=== PATIENT | male | born 1950 | race African-American/Black ===

== ENCOUNTER 2018-10-27 12:49 | Inpatient (IN) | payer MEDICARE, MEDICAID ==
[~2018-10-27] VITALS: Ht 172.7 cm; Wt 94.8 kg
[~2018-10-27 12:49] MED LIST: AMLODIPINE PO; CLOP75TA16 PO; LEVE1000 PO; LIPITOR; LORA10TA2 PO; SIMVASTATIN PO; ZOLPIDEM PO
[2018-10-27] MEDS ORDERED: SODIUM CHLORIDE 0.9% 1,000 ML IV ONE (13:20)
[2018-10-27 13:50] LABS: BASOPHILS % 1.3 % (0.0-2.0); EOSINOPHILS % 2.6 % (0.0-5.0); HEMATOCRIT. 42.9 % (42.0-52.0); LYMPHOCYTES % 24.5 % (20.0-50.0); MEAN CORPUSCULAR HEMOGLOBIN 28.9 pg (28.0-32.0); MEAN CORPUSCULAR VOLUME 88.6 fL (80.0-94.0); MEAN PLATELET VOLUME 8.4 fl (7.4-10.4); MONOCYTES % 7.8 % (2.0-8.0); NEUTROPHILS % 63.8 % (40.0-76.0); PLATELET 262 x1000/uL (130-400); RED BLOOD CELL COUNT 4.84 mill/uL (4.7-6.1); RED CELL DISTRIBUTION WIDTH 13.7 % (11.6-14.6)
[2018-10-27 13:55] LABS: CHLORIDE 107 mEq/L (98-107)
[2018-10-27 14:04] LABS: INR 1.1; PROTHROMBIN TIME 11.4 sec (9.6-11.0)
[2018-10-27 15:19] LABS: CLARITY URINE CLEAR (CLEAR); COLOR URINE YELLOW (YELLOW); KETONES URINE NEGATIVE (NEGATIVE); LEUKOCYTE ESTERASE URINE NEGATIVE (NEGATIVE); NITRITE URINE NEGATIVE (NEGATIVE); OCCULT BLOOD URINE 1+ (NEGATIVE); PH URINE 5.5 (4.5-8.0); PROTEIN URINE NEGATIVE (NEGATIVE); SPECIFIC GRAVITY URINE 1.025 (1.005-1.030)
[2018-10-27] MEDS ORDERED: CLONIDINE 0.1MG TABLET PO PRN (16:00)
[2018-10-27] MEDS ORDERED: ONDANSETRON HCL 4MG/2ML INJ IV PRN (16:00)
[2018-10-27] MEDS ORDERED: ACETAMINOPHEN 325MG TABLET PO PRN (16:00)
[2018-10-27] MEDS ORDERED: MORPHINE SULFATE 4 MG/ML CPJ (NOT FOR IM USE) IV PRN (18:00)
[2018-10-27] MEDS ORDERED: IOHEXOL-300 100 ML BOTTLE ONE (19:09)
[2018-10-27] MEDS ORDERED: PANTOPRAZOLE SODIUM 40 MG/VIAL IV NR (20:00)
[2018-10-27] MEDS: DEXT 5%/0.45% NACL 1000ML 1,000 ML IV SCH (20:17)
[2018-10-27 22:00] VITALS: BP 137/84
[2018-10-28] VITALS: BP 132/84
[2018-10-28 04:00] VITALS: BP 119/74
[2018-10-28 06:25] LABS: BASOPHILS % 0.8 % (0.0-2.0); EOSINOPHILS % 2.8 % (0.0-5.0); HEMATOCRIT. 36.2 % (42.0-52.0); LYMPHOCYTES % 26.2 % (20.0-50.0); MEAN CORPUSCULAR HEMOGLOBIN 29.2 pg (28.0-32.0); MEAN CORPUSCULAR VOLUME 87.8 fL (80.0-94.0); MEAN PLATELET VOLUME 8.5 fl (7.4-10.4); MONOCYTES % 8.8 % (2.0-8.0); NEUTROPHILS % 61.4 % (40.0-76.0); PLATELET 233 x1000/uL (130-400); RED BLOOD CELL COUNT 4.13 mill/uL (4.7-6.1); RED CELL DISTRIBUTION WIDTH 13.6 % (11.6-14.6)
[2018-10-28 07:13] LABS: CHLORIDE 105 mEq/L (98-107)
[2018-10-28 07:48] VITALS: BP 130/74
[2018-10-28] MEDS: DEXT 5%/0.45% NACL 1000ML 1,000 ML IV SCH ×4 (08:40→21:14)
[2018-10-28] MEDS: PANTOPRAZOLE SODIUM 40 MG/VIAL IV SCH ×2 (08:50→17:42)
[2018-10-28 10:27] LABS: *AMPHETAMINES SCREEN URINE NEGATIVE (NEGATIVE); *BARBITURATES SCREEN URINE NEGATIVE (NEGATIVE); *BENZODIAZEPINES SCREEN URINE NEGATIVE (NEGATIVE); *COCAINE SCREEN URINE NEGATIVE (NEGATIVE); CANNABINOID URINE SCREEN NEGATIVE (NEGATIVE); METHADONE URINE SCREEN NEGATIVE (NEGATIVE); OPIATES URINE SCREEN NEGATIVE (NEGATIVE); PHENCYCLIDINE URINE SCREEN NEGATIVE (NEGATIVE)
[2018-10-28 11:54] VITALS: BP 144/89
[2018-10-28] MEDS: BLOOD SUGAR DIAGNOSTIC STRIP TEST SCH ×2 (12:42→17:42)
[2018-10-28] MEDS: INSULIN LISPRO 100 UNITS/ML SUBCUT SCH ×3 (12:42→20:59)
[2018-10-28] MEDS ORDERED: DEXTROSE 50% WATER 50ML SYRINGE IV PRN (12:45)
[2018-10-28 14:33] LABS: TOTAL IRON BINDING CAPACITY 232 ug/dL (250-450)
[2018-10-28 14:47] LABS: FOLIC ACID (FOLATE) SERUM 17.2 ng/mL (>5.38)
[2018-10-28 15:59] VITALS: BP 148/89
[2018-10-28] MEDS: METFORMIN HCL 500MG TABLET PO SCH (17:42)
[2018-10-28 20:00] VITALS: BP 138/76
[2018-10-28] MEDS: LEVETIRACETAM 500MG TABLET PO SCH (20:59)
[2018-10-29] VITALS: BP 139/86
[2018-10-29 04:00] VITALS: BP 124/70
[2018-10-29 06:19] LABS: HEMATOCRIT 36.2 % (42.0-52.0); HEMOGLOBIN 12.2 g/dL (14.0-18.0); MEAN CORPUSCULAR HEMOGLOBIN 29.3 pg (28.0-32.0); MEAN CORPUSCULAR VOLUME 86.9 fL (80.0-94.0); PLATELET 225 x1000/uL (130-400); RED BLOOD CELL COUNT 4.17 mill/uL (4.7-6.1); RED CELL DISTRIBUTION WIDTH 13.1 % (11.6-14.6)
[2018-10-29] MEDS: BLOOD SUGAR DIAGNOSTIC STRIP TEST SCH ×2 (07:00→13:14)
[2018-10-29] MEDS: INSULIN LISPRO 100 UNITS/ML SUBCUT SCH ×2 (07:50→12:50)
[2018-10-29 08:27] VITALS: BP 149/95
[2018-10-29] MEDS: PANTOPRAZOLE SODIUM 40 MG/VIAL IV SCH (08:50)
[2018-10-29] MEDS: METFORMIN HCL 500MG TABLET PO SCH (08:51)
[2018-10-29] MEDS: LEVETIRACETAM 500MG TABLET PO SCH (08:51)
[2018-10-29 11:57] VITALS: BP 155/94
[2018-10-29 16:00] VITALS: BP 122/88
== END 2018-10-29 15:00 | disposition home or self-care (01) | DRG 377 ==
LOC: ER 12:49 → 6WST 15:46 → EDBEDREQSVC 15:52 → EDBEDREQ 15:52 → ENRESERV 20:55
PROVIDERS: ADMIT Internal Medicine; ATTEND Internal Medicine
DX: K57.31 Diverticulosis of large intestine without perforation or abscess with bleeding (principal); K85.90 Acute pancreatitis without necrosis or infection, unspecified; I69.354 Hemiplegia and hemiparesis following cerebral infarction affecting left non-dominant side; D64.9 Anemia, unspecified; I10 Essential (primary) hypertension; G90.8 Other disorders of autonomic nervous system; E11.9 Type 2 diabetes mellitus without complications; G40.909 Epilepsy, unspecified, not intractable, without status epilepticus; E78.5 Hyperlipidemia, unspecified; K76.0 Fatty (change of) liver, not elsewhere classified; I25.2 Old myocardial infarction; Z79.01 Long term (current) use of anticoagulants; Z86.718 Personal history of other venous thrombosis and embolism; Z79.899 Other long term (current) drug therapy; Z86.711 Personal history of pulmonary embolism; Z91.81 History of falling; Z95.828 Presence of other vascular implants and grafts
CPT/HCPCS: 36415; 71045; 74177; 80048; 80061; 80076; 80305; 82607; 82728; 82746; 82962; 83036; 83540; 83550; 83605; 84484; 85018; 85027; 86850; 86900; 93005; 93970; 96361; 96374; 97162; 97535; 99291; C9113; J7030; Q9967

== ENCOUNTER 2021-07-06 20:11 | Inpatient (IN) | payer MEDICARE, MEDICAID ==
[~2021-07-06] VITALS: Ht 172.7 cm; Wt 96.2 kg
[~2021-07-06 20:11] MED LIST changes: -CLOP75TA16 PO
[2021-07-06 23:19] LABS: BASOPHILS % 0.6 % (0.0-2.0); EOSINOPHILS % 0.3 % (0.0-5.0); HEMATOCRIT. 41.2 % (42.0-52.0); HEMOGLOBIN. 13.1 g/dL (14.0-18.0); LYMPHOCYTES % 16.1 % (20.0-50.0); MEAN CORPUSCULAR HEMOGLOBIN 27.9 pg (28.0-32.0); MEAN CORPUSCULAR VOLUME 87.7 fL (80.0-94.0); MEAN PLATELET VOLUME 7.9 fl (7.4-10.4); MONOCYTES % 13.6 % (2.0-8.0); NEUTROPHILS % 69.4 % (40.0-76.0); PLATELET 261 x1000/uL (130-400); RED CELL DISTRIBUTION WIDTH 13.4 % (11.6-14.6)
[2021-07-06 23:42] LABS: CHLORIDE 104 mEq/L (98-107)
[2021-07-07] MEDS: SODIUM CHLORIDE 0.45% 1,000 ML IV SCH (10:55)
[2021-07-07] MEDS ORDERED: DEXTROSE 50% WATER 50ML SYRINGE IV PRN (12:30)
[2021-07-07] MEDS: LEVETIRACETAM 500MG/5ML CUP PO SCH ×2 (13:55→22:26)
[2021-07-07 14:21] LABS: *BARBITURATES SCREEN URINE NEGATIVE (NEGATIVE); *BENZODIAZEPINES SCREEN URINE NEGATIVE (NEGATIVE); *COCAINE SCREEN URINE NEGATIVE (NEGATIVE); METHADONE URINE SCREEN NEGATIVE (NEGATIVE)
[2021-07-07 14:22] LABS: *AMPHETAMINES SCREEN URINE NEGATIVE (NEGATIVE); CANNABINOID URINE SCREEN NEGATIVE (NEGATIVE); OPIATES URINE SCREEN NEGATIVE (NEGATIVE)
[2021-07-07 14:26] LABS: PHENCYCLIDINE URINE SCREEN NEGATIVE (NEGATIVE)
[2021-07-07] MEDS: BLOOD SUGAR DIAGNOSTIC STRIP TEST SCH ×2 (17:13→21:00)
[2021-07-07] MEDS: INSULIN LISPRO 100 UNITS/ML SUBCUT SCH ×2 (17:14→22:28)
[2021-07-07 18:55] LABS: BASOPHILS % 0.8 % (0.0-2.0); EOSINOPHILS % 3.2 % (0.0-5.0); HEMATOCRIT. 40.6 % (42.0-52.0); HEMOGLOBIN. 13.4 g/dL (14.0-18.0); LYMPHOCYTES % 19.4 % (20.0-50.0); MEAN CORPUSCULAR HEMOGLOBIN 28.7 pg (28.0-32.0); MEAN PLATELET VOLUME 7.8 fl (7.4-10.4); MONOCYTES % 11.6 % (2.0-8.0); PLATELET 258 x1000/uL (130-400); RED BLOOD CELL COUNT 4.67 mill/uL (4.7-6.1)
[2021-07-07 19:02] LABS: CHLORIDE 100 mEq/L (98-107)
[2021-07-07 19:18] LABS: LDL CHOLESTEROL 78 mg/dL (5-100)
[2021-07-07 19:19] LABS: HDL CHOLESTEROL 34 mg/dL (40-59)
[2021-07-07] MEDS: ENOXAPARIN 30MG/0.3ML SYR SUBCUT SCH (22:27)
[2021-07-08 00:05] LABS: CLARITY URINE CLEAR (CLEAR); COLOR URINE YELLOW (YELLOW); KETONES URINE NEGATIVE (NEGATIVE); LEUKOCYTE ESTERASE URINE NEGATIVE (NEGATIVE); NITRITE URINE NEGATIVE (NEGATIVE); OCCULT BLOOD URINE TRACE (NEGATIVE); PH URINE 7.5 (4.5-8.0); PROTEIN URINE 1+ (NEGATIVE); SPECIFIC GRAVITY URINE 1.013 (1.005-1.030)
[2021-07-08] MEDS: ACETAMINOPHEN 325MG TABLET PO PRN ×2 (01:43→13:55)
[2021-07-08] MEDS ORDERED: SODIUM CHLORIDE 0.9% 500 ML IV ONE (01:45)
[2021-07-08] MEDS: CEFTRIAXONE 1,000 MG in DEXTROSE 5% WATER 50 ML IV SCH (03:04)
[2021-07-08] MEDS: AZITHROMYCIN 500MG in DEXTROSE 5% WATER 250ML IV SCH (03:23)
[2021-07-08] MEDS: SODIUM CHLORIDE 0.45% 1,000 ML IV SCH (03:24)
[2021-07-08] MEDS: BLOOD SUGAR DIAGNOSTIC STRIP TEST SCH ×4 (07:15→21:00)
[2021-07-08] MEDS: INSULIN LISPRO 100 UNITS/ML SUBCUT SCH ×3 (07:47→18:01)
[2021-07-08] MEDS: AMLODIPINE 5MG TABLET PO SCH (10:15)
[2021-07-08] MEDS: ENOXAPARIN 30MG/0.3ML SYR SUBCUT SCH (10:45)
[2021-07-08] MEDS: LEVETIRACETAM 500MG/5ML CUP PO SCH (12:07)
[2021-07-08 12:53] LABS: BASOPHILS % 0.8 % (0.0-2.0); HEMATOCRIT. 42.6 % (42.0-52.0); LYMPHOCYTES % 27.3 % (20.0-50.0); MEAN CORPUSCULAR HEMOGLOBIN 28.7 pg (28.0-32.0); MEAN PLATELET VOLUME 7.9 fl (7.4-10.4); MONOCYTES % 12.3 % (2.0-8.0); NEUTROPHILS % 55.6 % (40.0-76.0); PLATELET 255 x1000/uL (130-400)
[2021-07-08 13:00] LABS: CHLORIDE 102 mEq/L (98-107)
[2021-07-08 13:18] VITALS: BP 126/80
[2021-07-08 16:00] VITALS: BP 118/73
[2021-07-08 20:00] VITALS: BP 131/82
[2021-07-08] MEDS ORDERED: SODIUM CHLORIDE 0.9% 1000ML BAG (SEPSIS BOLUS) IV NR (21:30)
[2021-07-09] VITALS: BP 128/72
[2021-07-09] MEDS: SODIUM CHLORIDE 0.45% 1,000 ML IV SCH ×2 (00:10→13:27)
[2021-07-09] MEDS: ENOXAPARIN 30MG/0.3ML SYR SUBCUT SCH ×2 (00:11→09:00)
[2021-07-09] MEDS: LEVETIRACETAM 500MG/5ML CUP PO SCH ×2 (00:11→09:00)
[2021-07-09] MEDS: INSULIN LISPRO 100 UNITS/ML SUBCUT SCH ×3 (00:12→13:36)
[2021-07-09 04:00] VITALS: BP 132/74
[2021-07-09] MEDS: AZITHROMYCIN 500MG in DEXTROSE 5% WATER 250ML IV SCH (04:03)
[2021-07-09] MEDS: CEFTRIAXONE 1,000 MG in DEXTROSE 5% WATER 50 ML IV SCH (04:03)
[2021-07-09 08:00] VITALS: BP 137/84
[2021-07-09] MEDS: BLOOD SUGAR DIAGNOSTIC STRIP TEST SCH ×2 (08:17→12:49)
[2021-07-09] MEDS: AMLODIPINE 5MG TABLET PO SCH (09:00)
[2021-07-09 12:00] VITALS: BP 128/85
[2021-07-09] MEDS ORDERED: AZIT500T3 MT (14:52)
[2021-07-09] MEDS ORDERED: DEXA4TAB69 MT (14:52)
[2021-07-09 16:00] VITALS: BP 140/69
[2021-07-09 16:38] VITALS: BP 140/69
[2021-07-10] MEDS ORDERED: AZITHROMYCIN 500 MG TABLET PO SCH (09:00)
== END 2021-07-09 17:30 | disposition home or self-care (01) | DRG 70 ==
LOC: ER 20:11 → MICUSO 22:48 → EDBEDREQ 22:50 → EDBEDREQTM 22:50 → EDBEDREQSVC 22:50 → 7WST 07-08 13:13
PROVIDERS: ADMIT Family Medicine; ATTEND Family Medicine
DX: G93.41 Metabolic encephalopathy (principal); U07.1 COVID-19; E11.9 Type 2 diabetes mellitus without complications; E78.5 Hyperlipidemia, unspecified; F17.200 Nicotine dependence, unspecified, uncomplicated; G40.909 Epilepsy, unspecified, not intractable, without status epilepticus; I10 Essential (primary) hypertension; R74.01 Elevation of levels of liver transaminase levels; Z86.73 Personal history of transient ischemic attack (TIA), and cerebral infarction without residual deficits; I49.9 Cardiac arrhythmia, unspecified
CPT/HCPCS: 36415; 71045; 80053; 80061; 80305; 81003; 82140; 82962; 83036; 83605; 84145; 84443; 84484; 85025; 86140; 87426; 93005; 97162; 97166; 99285; J0456; J0696; J1650; J1815; J7040; J7060; A4315

== ENCOUNTER 2022-08-14 07:23 | Inpatient (IN) | payer MEDICARE, MEDICAID ==
[~2022-08-14] VITALS: Ht 172.7 cm; Wt 96.2 kg
[~2022-08-14 07:23] MED LIST changes: +AZIT500T3 MT; +DEXA4TAB69 MT
[2022-08-14] MEDS ORDERED: ACETAMINOPHEN 325MG TABLET PO ONE (10:30)
[2022-08-14] MEDS ORDERED: SODIUM CHLORIDE 0.9% 1,000 ML IV ONE (11:30)
[2022-08-14] MEDS ORDERED: MORPHINE SULFATE 4 MG/ML CPJ (NOT FOR IM USE) IV STA (11:30)
[2022-08-14 12:12] LABS: BASOPHILS % 0.4 % (0.0-2.0); EOSINOPHILS % 0.2 % (0.0-5.0); HEMOGLOBIN. 13.7 g/dL (14.0-18.0); LYMPHOCYTES % 11.9 % (20.0-50.0); MEAN CORPUSCULAR HEMOGLOBIN 28.6 pg (28.0-32.0); MEAN CORPUSCULAR VOLUME 87.6 fL (80.0-94.0); MONOCYTES % 6.8 % (2.0-8.0); NEUTROPHILS % 80.7 % (40.0-76.0); PLATELET 276 x1000/uL (130-400); RED BLOOD CELL COUNT 4.79 mill/uL (4.7-6.1); RED CELL DISTRIBUTION WIDTH 13.5 % (11.6-14.6)
[2022-08-14 12:17] LABS: PROTHROMBIN TIME 11.2 sec (9.6-11.0)
[2022-08-14] MEDS ORDERED: IOHEXOL-350 100 ML BOTTLE ONE (13:00)
[2022-08-14 13:23] LABS: CHLORIDE 102 mEq/L (98-107)
[2022-08-14] MEDS ORDERED: MORPHINE SULFATE 4 MG/ML CPJ (NOT FOR IM USE) IV NR (14:00)
[2022-08-14] MEDS ORDERED: ACETAMINOPHEN 325MG TABLET PO NR (14:00)
[2022-08-14] MEDS: HEPARIN 80 UNITS/KG BOLUS IV SCH ×2 (14:00→14:40)
[2022-08-14] MEDS ORDERED: HEPARIN 25,000 UNITS PREMIX 250 ML IV SCH ×2 (14:30→14:43)
[2022-08-14 15:32] LABS: PROTHROMBIN TIME 11.2 sec (9.6-11.0)
[2022-08-14] MEDS ORDERED: NITROGLYCERIN 0.4MG TABLET SL SL PRN (16:15)
[2022-08-14] MEDS ORDERED: CLONIDINE 0.1MG TABLET PO PRN (16:15)
[2022-08-14] MEDS ORDERED: DEXTROSE 50% WATER 50ML SYRINGE IV PRN (16:15)
[2022-08-14] MEDS ORDERED: GUAIFENESIN 200MG/10ML SUGAR FREE UDC PO PRN (16:15)
[2022-08-14] MEDS ORDERED: MAGNESIUM/ALUMINUM HYDROXIDE/SIMETHICONE 30ML UDC PO PRN (16:15)
[2022-08-14] MEDS ORDERED: IPRATROPIUM/ALBUTEROL 0.5-3(2.5)MG/3ML NEB NEB PRN (16:15)
[2022-08-14] MEDS ORDERED: ACETAMINOPHEN 325MG TABLET PO PRN ×2 (16:15)
[2022-08-14] MEDS ORDERED: NA PHOS,M-B/NA PHOS,DI-BA ENEMA 118ML PR PRN (16:15)
[2022-08-14] MEDS ORDERED: ZOLPIDEM TARTRATE 5MG TABLET PO PRN (16:15)
[2022-08-14] MEDS ORDERED: ONDANSETRON HCL 4MG/2ML INJ IV PRN (16:15)
[2022-08-14] MEDS: ENOXAPARIN 100MG/ML SYR SUBCUT SCH (17:27)
[2022-08-14] MEDS: BLOOD SUGAR DIAGNOSTIC STRIP TEST SCH ×2 (17:30→21:42)
[2022-08-14] MEDS: INSULIN LISPRO 100 UNITS/ML SUBCUT SCH ×2 (18:20→21:00)
[2022-08-14 18:35] LABS: T4 FREE 1.06 ng/dL (0.76-1.46)
[2022-08-14 18:52] LABS: FOLIC ACID (FOLATE) SERUM 19.1 ng/mL (>5.38)
[2022-08-14 19:19] VITALS: BP 154/107
[2022-08-14 20:00] VITALS: BP 154/107
[2022-08-14] MEDS ORDERED: HEPARIN BOLUS PRN aPTT 37-44 IV (20:00)
[2022-08-14] MEDS ORDERED: HEPARIN BOLUS PRN aPTT <36 IV (20:00)
[2022-08-14] MEDS: FAMOTIDINE 20MG TABLET PO SCH (21:37)
[2022-08-15] VITALS (9 sets, daily range): BP systolic 116–161; BP diastolic 74–98
[2022-08-15 01:10] LABS: CREATINE KINASE 105 IU/L (39-308); CREATINE KINASE MB FRACTION < 1.0 ng/mL (0.5-3.6)
[2022-08-15] MEDS: ENOXAPARIN 100MG/ML SYR SUBCUT SCH ×2 (06:10→18:39)
[2022-08-15] MEDS: BLOOD SUGAR DIAGNOSTIC STRIP TEST SCH ×4 (06:10→21:25)
[2022-08-15 06:52] LABS: CHLORIDE 102 mEq/L (98-107)
[2022-08-15 06:54] LABS: BASOPHILS % 0.5 % (0.0-2.0); EOSINOPHILS % 0.5 % (0.0-5.0); HEMATOCRIT. 39.2 % (42.0-52.0); HEMOGLOBIN. 13.6 g/dL (14.0-18.0); LYMPHOCYTES % 13.9 % (20.0-50.0); MEAN CORPUSCULAR HEMOGLOBIN 30.2 pg (28.0-32.0); MEAN CORPUSCULAR VOLUME 87.1 fL (80.0-94.0); MEAN PLATELET VOLUME 8.2 fl (7.4-10.4); MONOCYTES % 8.8 % (2.0-8.0); NEUTROPHILS % 76.3 % (40.0-76.0); PLATELET 250 x1000/uL (130-400); RED CELL DISTRIBUTION WIDTH 13.2 % (11.6-14.6)
[2022-08-15 07:03] LABS: CREATINE KINASE 107 IU/L (39-308); CREATINE KINASE MB FRACTION < 1.0 ng/mL (0.5-3.6); PHOSPHORUS 3.1 mg/dL (2.5-4.9)
[2022-08-15] MEDS: FAMOTIDINE 20MG TABLET PO SCH ×2 (08:15→21:32)
[2022-08-15] MEDS: CLOPIDOGREL 75MG TABLET PO SCH (08:15)
[2022-08-15] MEDS: INSULIN LISPRO 100 UNITS/ML SUBCUT SCH ×4 (08:17→21:34)
[2022-08-15] MEDS ORDERED: METOPROLOL TARTRATE 5MG/5ML VIAL IV NR (20:45)
[2022-08-15] MEDS: LEVETIRACETAM 500MG/5ML CUP PO SCH (21:32)
[2022-08-15] MEDS: ATORVASTATIN CALCIUM 10MG TABLET PO SCH (21:32)
[2022-08-16] VITALS (7 sets, daily range): BP systolic 101–142; BP diastolic 62–94
[2022-08-16] MEDS: ENOXAPARIN 100MG/ML SYR SUBCUT SCH ×2 (06:10→18:05)
[2022-08-16] MEDS: BLOOD SUGAR DIAGNOSTIC STRIP TEST SCH ×4 (06:10→21:52)
[2022-08-16] MEDS: LEVETIRACETAM 500MG/5ML CUP PO SCH ×2 (07:59→21:46)
[2022-08-16] MEDS: CLOPIDOGREL 75MG TABLET PO SCH (07:59)
[2022-08-16] MEDS: FAMOTIDINE 20MG TABLET PO SCH ×2 (07:59→21:46)
[2022-08-16] MEDS: DOCUSATE SODIUM 100MG CAPSULE PO PRN (07:59)
[2022-08-16] MEDS: INSULIN LISPRO 100 UNITS/ML SUBCUT SCH ×4 (08:00→21:52)
[2022-08-16] MEDS: ATORVASTATIN CALCIUM 10MG TABLET PO SCH (21:46)
[2022-08-17] VITALS: BP 123/85
[2022-08-17 04:00] VITALS: BP 119/74
[2022-08-17] MEDS: BLOOD SUGAR DIAGNOSTIC STRIP TEST SCH ×4 (06:27→20:32)
[2022-08-17] MEDS: ENOXAPARIN 100MG/ML SYR SUBCUT SCH ×2 (06:28→18:02)
[2022-08-17 08:00] VITALS: BP 151/77
[2022-08-17] MEDS: CLOPIDOGREL 75MG TABLET PO SCH (08:41)
[2022-08-17] MEDS: LEVETIRACETAM 500MG/5ML CUP PO SCH ×2 (08:41→20:17)
[2022-08-17] MEDS: INSULIN LISPRO 100 UNITS/ML SUBCUT SCH ×4 (08:42→20:29)
[2022-08-17] MEDS: FAMOTIDINE 20MG TABLET PO SCH ×2 (08:43→20:16)
[2022-08-17 12:00] VITALS: BP 151/77
[2022-08-17 16:00] VITALS: BP 143/93
[2022-08-17 20:00] VITALS: BP 146/93
[2022-08-17] MEDS: ATORVASTATIN CALCIUM 10MG TABLET PO SCH (20:16)
[2022-08-18] VITALS: BP 131/92
[2022-08-18 04:00] VITALS: BP 150/123
[2022-08-18] MEDS: ENOXAPARIN 100MG/ML SYR SUBCUT SCH (06:46)
[2022-08-18] MEDS: BLOOD SUGAR DIAGNOSTIC STRIP TEST SCH ×2 (06:50→11:32)
[2022-08-18] MEDS: CLOPIDOGREL 75MG TABLET PO SCH (08:07)
[2022-08-18] MEDS: FAMOTIDINE 20MG TABLET PO SCH (08:07)
[2022-08-18] MEDS: LEVETIRACETAM 500MG/5ML CUP PO SCH (08:07)
[2022-08-18] MEDS: DOCUSATE SODIUM 100MG CAPSULE PO PRN (08:07)
[2022-08-18] MEDS: INSULIN LISPRO 100 UNITS/ML SUBCUT SCH ×2 (08:10→12:22)
[2022-08-18 08:31] VITALS: BP 122/78
[2022-08-18] MEDS ORDERED: ATOR20TA MT (10:54)
[2022-08-18] MEDS ORDERED: GLIM4TAB36 MT (10:54)
[2022-08-18] MEDS ORDERED: FAMO-135 MT (10:54)
[2022-08-18] MEDS ORDERED: XAR15 MT (10:54)
[2022-08-18 11:58] VITALS: BP 118/87
[2022-08-18 12:00] VITALS: BP 118/87
== END 2022-08-18 14:10 | disposition home health service (06) | DRG 300 ==
LOC: ER 07:23 → EDBEDREQ 13:05 → MICUSO 15:56 → EDBEDREQ 16:00 → EDBEDREQTM 16:00 → SUPCPDRO 16:02 → 3WST 18:35
PROVIDERS: ADMIT Internal Medicine; ATTEND Internal Medicine
DX: I82.411 Acute embolism and thrombosis of right femoral vein (principal); I69.354 Hemiplegia and hemiparesis following cerebral infarction affecting left non-dominant side; I82.431 Acute embolism and thrombosis of right popliteal vein; I10 Essential (primary) hypertension; E78.00 Pure hypercholesterolemia, unspecified; K76.0 Fatty (change of) liver, not elsewhere classified; Z20.822 Contact with and (suspected) exposure to COVID-19; R26.9 Unspecified abnormalities of gait and mobility; E11.42 Type 2 diabetes mellitus with diabetic polyneuropathy; Z79.4 Long term (current) use of insulin; Z86.718 Personal history of other venous thrombosis and embolism; Z95.828 Presence of other vascular implants and grafts; Z28.310 Unvaccinated for COVID-19; Z82.49 Family history of ischemic heart disease and other diseases of the circulatory system; W01.0XXA Fall on same level from slipping, tripping and stumbling without subsequent striking against object, initial encounter; Y93.89 Activity, other specified; Y92.89 Other specified places as the place of occurrence of the external cause; Y99.8 Other external cause status
CPT/HCPCS: 36415; 70551; 71045; 71275; 72191; 73706; 80053; 80061; 82550; 82553; 82607; 82746; 82962; 83036; 83540; 83550; 83735; 84100; 84439; 84443; 84484; 85025; 87426; 93005; 93306; 93971; 97162; 97166; 99285; J1644; J1650; J1815; J2270; J3490; J7030; Q9967

== ENCOUNTER 2023-02-21 14:51 | Emergency (ER) | payer MEDICARE, MEDICAID ==
[~2023-02-21] VITALS: Ht 180.3 cm; Wt 81.0 kg
[~2023-02-21 14:51] MED LIST changes: -AMLODIPINE PO; +ATOR20TA MT; -AZIT500T3 MT; -DEXA4TAB69 MT; +FAMO-135 MT; +GLIM4TAB36 MT; -LIPITOR; -LORA10TA2 PO; -SIMVASTATIN PO; +XAR15 MT
[2023-02-21 15:00] VITALS: BP 119/75; RESP 20; TEMP 98.3; O2SAT 97
[2023-02-21 15:06] VITALS: PULSE 98
== END 2023-02-21 19:29 | disposition home or self-care (01) ==
LOC: ER 15:09
DX: S60.812A Abrasion of left wrist, initial encounter (principal); E11.9 Type 2 diabetes mellitus without complications; I10 Essential (primary) hypertension; E78.00 Pure hypercholesterolemia, unspecified; R56.9 Unspecified convulsions; I63.9 Cerebral infarction, unspecified; Z98.890 Other specified postprocedural states; W06.XXXA Fall from bed, initial encounter; Y93.89 Activity, other specified; Y92.89 Other specified places as the place of occurrence of the external cause; Y99.8 Other external cause status
CPT/HCPCS: 73110; 73130; 99284

== ENCOUNTER 2023-03-30 17:15 | Emergency (ER) | payer MEDICARE, MEDICAID ==
[~2023-03-30] VITALS: Ht 172.7 cm; Wt 94.3 kg
[2023-03-30 17:17] VITALS: BP 107/78; PULSE 123; RESP 18; TEMP 98.4; O2SAT 97
[2023-03-30 18:57] LABS: CHLORIDE 106 mEq/L (98-107); INDEX HEMOLYSI 1 (1-3); INDEX ICTERIC 1 (1-4); INDEX LIPEMIC 1 (1-3); POTASSIUM 3.9 mEq/L (3.5-5.1); SODIUM 138 mEq/L (136-145)
[2023-03-30 18:58] LABS: BASOPHILS % 0.9 % (0.0-2.0); EOSINOPHILS % 2.1 % (0.0-5.0); HEMATOCRIT. 44.8 % (42.0-52.0); HEMOGLOBIN. 14.8 g/dL (14.0-18.0); LYMPHOCYTES % 25.9 % (20.0-50.0); MEAN CORPUSCULAR HEMOGLOBIN 28.8 pg (28.0-32.0); MEAN CORPUSCULAR VOLUME 87.4 fL (80.0-94.0); MEAN PLATELET VOLUME 8.1 fl (7.4-10.4); MONOCYTES % 7.3 % (2.0-8.0); NEUTROPHILS % 63.8 % (40.0-76.0); PLATELET 313 x1000/uL (130-400); RED BLOOD CELL COUNT 5.12 mill/uL (4.7-6.1); RED CELL DISTRIBUTION WIDTH 14.2 % (11.6-14.6); WHITE BLOOD COUNT 5.9 x1000/uL (4.5-11.0)
[2023-03-30 19:03] LABS: INR 1.3; PROTHROMBIN TIME 13.3 sec (9.6-11.0)
[2023-03-30 19:06] LABS: ALANINE AMINOTRANSFERASE 43 IU/L (13-61); ALBUMIN 4.5 g/dL (3.4-5.0); ASPARTATE AMINOTRANSFERASE 24 IU/L (15-37); BILIRUBIN TOTAL 0.7 mg/dL (0.1-1.0); CALCIUM 9.8 mg/dL (8.5-10.1); CARBON DIOXIDE 27 mEq/L (21-32); CREATININE 1.1 mg/dL (0.6-1.3); GLUCOSE 120 mg/dL (70-105); PROTEIN TOTAL 8.9 g/dL (6.0-8.3); UREA NITROGEN BLOOD 16 mg/dL (7-21)
[2023-03-30 19:36] LABS: CLARITY URINE CLOUDY (CLEAR); COLOR URINE RED (YELLOW); GLUCOSE URINE 3+ (NEGATIVE); KETONES URINE NEGATIVE (NEGATIVE); LEUKOCYTE ESTERASE URINE 1+ (NEGATIVE); NITRITE URINE NEGATIVE (NEGATIVE); OCCULT BLOOD URINE 3+ (NEGATIVE); PH URINE 5.5 (4.5-8.0); PROTEIN URINE 3+ (NEGATIVE); SPECIFIC GRAVITY URINE 1.034 (1.005-1.030); UROBILINOGEN URINE 0.2 E.U./dL (0.2-1.0)
[2023-03-30 20:01] LABS: BACTERIA URINE 2+; RBC URINE TNTC /hpf (0-2); SQUAMOUS EPITHELIAL CELL URINE 1+ /lpf (RARE/1+)
[2023-03-30] MEDS ORDERED: SULF1TAB44 MT (23:25)
== END 2023-03-30 23:52 | disposition home or self-care (01) ==
LOC: ER 17:15
DX: R31.0 Gross hematuria (principal); T45.515A Adverse effect of anticoagulants, initial encounter; E11.9 Type 2 diabetes mellitus without complications; E78.00 Pure hypercholesterolemia, unspecified; I10 Essential (primary) hypertension; Z86.73 Personal history of transient ischemic attack (TIA), and cerebral infarction without residual deficits; Z79.899 Other long term (current) drug therapy; X58.XXXA Exposure to other specified factors, initial encounter
CPT/HCPCS: 36415; 80053; 81003; 85025; 86850; 86900; 93005; 99284